=== PATIENT | male | born 1940 | race Caucasian/White ===

== ENCOUNTER → 2017-08-20 | Outpatient (CLI) | payer OTHER, BC ==
[~2017-08-20] VITALS: Ht 190.5 cm; Wt 96.2 kg
[~2017-08-20] MED LIST: ASPIR 8181 MG PO; ATORVASTATIN CA40 MG PO; CALCIUM 600 +1 EAC1 PO; CENTRUM SILVER1 EAC2 PO; COZAAR 25 MG TA25 M1 PO; CYCLOBENZAPRINE5 MG PO; FLOMAX0.4 MG PO; FOLIC ACID1 MG PO; GLIMEPIRIDE1 MG PO; KRILL OIL 1,001 EACH PO; METFORMIN HCL1000 MG PO; METHOTREXATE 22.5 MG PO; PROTONIX40 M1 PO; SYNTHROID150 MCG PO; TRAMADOL 50 MG50 MG PO; VITAMIN B-12500 MCG PO; VITAMIN D-32000 UNIT PO; VITAMIN E400 UNIT PO; VITAMINC500 PO
--- NOTE | ~2017-08-20 | P ---
[facility] [place] [address] PROCEDURE REPORT Name: AGUSTIN REVELES Room #: REG [facility].#: [id number] Admission: 08/20/17 Attend Phys: Filipe Infante MD Discharge: Date of : 40 Report #: [id number] THIS REPORT FOR: //name// CC: Filipe Infante BRIEF HISTORY: The patient is a 77-year-old male who was recently found to have a hemoglobin of 4.4. He is admitted to [facility] recently. Upper endoscopy revealed an AVM but the endoscopy report does not indicate the AVM was treated. He was seen in the office today and presents for further evaluation and treatment of gastric AVM. PREOPERATIVE DIAGNOSIS: Anemia with recent findings of gastric arteriovenous malformation. POSTOPERATIVE DIAGNOSES: Multiple gastric arteriovenous malformations, 1 oozing blood. MEDICATIONS: Deep sedation with propofol per anesthesia. SPECIMEN: None. ESTIMATED BLOOD LOSS: None related to procedure. PROCEDURE: EGD with BICAP cautery of gastric AVMs. FINDINGS: Prior to propofol sedation, procedure of upper endoscopy and treatment of AVMs were discussed with the patient as well as potential risks and its complications. He indicates he understands and desires to proceed. DESCRIPTION OF PROCEDURE: With the patient in left lateral decubitus position, the Owlri video endoscope was inserted in the cervical esophagus under direct vision without difficulty. Examination of this organ through its entire length revealed normal esophageal mucosa. The squamocolumnar junction was inspected and noted to be unremarkable. Scope was advanced in the stomach, was examined on end view as well as retroflexed views. There was no blood in the stomach. Upon retroflexion, no mass lesions were seen. The pylorus was normal. Duodenal bulb was normal. The scope was advanced to the fourth portion of the duodenum, which was inspected and noted to be unremarkable. Upon slow withdrawal of the scope, mucosa was inspected. No duodenal AVMs were seen. Scope was withdrawn back in the stomach and no antral AVMs were seen. The mucosa in the stomach was normal. However, in the distal body of the stomach just proximal to the incisura, a punctate AVM was seen. As we observed it, it started to ooze a small amount of bright red blood. It was destroyed with a BICAP probe. Two additional questionable AVMs were seen, one in the body and one in the fundus. Both were treated. However, just before withdrawing the scope, a large [facility] [address] [place] [address] PROCEDURE REPORT Name: AGUSTIN REVELES [id number] Admission: 08/20/17 Attend Phys: Filipe Infante MD Discharge: Date of : 40 Report #: [id number] nonbleeding AVM was seen. It was flat and about 5 mm in greatest dimension. It was destroyed with the BICAP probe. Further inspection of the stomach did not reveal any additional AVMs. Upon retroflexion, no mass lesions were seen. Scope was withdrawn. The patient tolerated the procedure well. CONDITION OF THE PATIENT UPON DISCHARGE: The patient is now prepared for colonoscopy. INSTRUCTIONS TO THE PATIENT AND FAMILY AT THE TIME OF DISCHARGE: Gastric AVMs identified as noted above. He is to continue followup with Dr. Filipe Rodriguez to continue to monitor his hemoglobin. Consider M2 capsule study. Proceed with colonoscopy at this time. <ELECTRONICALLY SIGNED> By: Filipe Infante MD 08/21/17 1331 [id number] [id number] Filipe Infante MD /nt
--- NOTE | ~2017-08-20 | P ---
[facility] [place] [address] PROCEDURE REPORT Name: AGUSTIN REVELES [id number] Admission: 08/20/17 Attend Phys: Filipe Infante MD Discharge: Date of : 40 Report #: [id number] THIS REPORT FOR: //name// CC: Filipe Infante BRIEF HISTORY: The patient is a 77-year-old male with marked anemia with hemoglobin of 4.4. He did have black dark stools. PREOPERATIVE DIAGNOSIS: Marked blood loss anemia. POSTOPERATIVE DIAGNOSIS: Moderate severe sigmoid diverticulosis coli. MEDICATIONS: Deep sedation with propofol per anesthesia. SPECIMEN: None. ESTIMATED BLOOD LOSS: None. PROCEDURE: Colonoscopy to cecum and terminal ileum. FINDINGS: Prior to propofol sedation, procedure of colonoscopy was discussed with the patient as well as potential risks and its complications. He indicates he understands and desires to proceed. DESCRIPTION OF PROCEDURE: With the patient in left lateral decubitus position, digital examination was completed which revealed no abnormalities. Subsequently, the [employer] IO video colonoscope was introduced rectally and under direct vision to the cecum. It was done with some difficulty as he has extensive diverticular disease in the sigmoid colon, which made traversing the sigmoid colon more difficult. We were able to reach the cecum, which was identified by the ileocecal valve and appendiceal orifice. We were able to advance the scope across the ileocecal valve and see the distal segment of terminal ileum, which was noted to be unremarkable. At that point, the scope was slowly withdrawn and careful circumferential views obtained including retroflexing the scope in the ascending colon. Upon slow withdrawal of the scope, there were some limitations of prep. However, we were able to irrigate and suction and remove much of this material. As we withdrew the scope through the colon, the mucosa was within normal limits, normal vascular pattern, normal light reflex. Specifically, no bleeding lesions were seen. AVMs were not seen. We did not identify any sources of blood loss in his colon exam. As we withdrew the scope, no abnormalities were noted until the sigmoid colon was reached and he had extensive diverticular disease without endoscopic evidence of diverticulitis. There is no evidence of bleeding from diverticular disease. Scope was withdrawn in the rectum. Upon retroflexion, no abnormalities were seen. The scope was withdrawn. The patient tolerated the procedure well. [address] [address] PROCEDURE REPORT Name: AGUSTIN REVELES Room #: REG [facility]#: [id number] Admission: 08/20/17 Attend Phys: Filipe Infante MD Discharge: Date of : 40 Report #: [id number] CONDITION OF THE PATIENT UPON DISCHARGE: Following the procedure, the patient drowsy, arousable and conversant and will be discharged to home when fully ambulatory. INSTRUCTIONS TO THE PATIENT AND FAMILY AT THE TIME OF DISCHARGE: Bleeding lesion was not identified. I would suggest high fiber diet due to his diverticular disease. Also, in view of his history of significant mitral valvular disease, we will have him obtain an M2 capsule study to exclude vascular ectasias of the small bowel. See upper endoscopy report as well. He should continue to follow up with Dr. Filipe Farfan. He is to continue iron replacement and continue monitoring hemoglobin. Last colonoscopy was in March of 2016 for screening. Withdrawal time from the cecum was 17 minutes and 30 seconds. <ELECTRONICALLY SIGNED> By: Filipe Infante MD 08/21/17 1331 1025 [id number] Filipe Infante MD /nt
== END | disposition home or self-care (01) ==
LOC: GI 07:10
DX: D64.9 Anemia, unspecified (principal); K57.30 Diverticulosis of large intestine without perforation or abscess without bleeding; Q27.33 Arteriovenous malformation of digestive system vessel; I10 Essential (primary) hypertension; E78.5 Hyperlipidemia, unspecified; K21.9 Gastro-esophageal reflux disease without esophagitis; Z98.890 Other specified postprocedural states; N40.0 Benign prostatic hyperplasia without lower urinary tract symptoms; E03.9 Hypothyroidism, unspecified; E11.9 Type 2 diabetes mellitus without complications; M06.9 Rheumatoid arthritis, unspecified
CPT/HCPCS: 62110; 62900